=== PATIENT | male | born 1955 | race African-American/Black ===

== ENCOUNTER 2020-11-11 23:46 | Inpatient (IN) | payer MEDICARE, MEDICAID ==
[~2020-11-11] VITALS: Ht 180.3 cm; Wt 61.7 kg
[2020-11-12] VITALS (22 sets, daily range): BP systolic 113–137; BP diastolic 48–107
[2020-11-12] MEDS ORDERED: ONDANSETRON HCL 4MG/2ML INJ IV STA (00:21)
[2020-11-12 00:47] LABS: CHLORIDE 106 mEq/L (98-107)
[2020-11-12 00:51] LABS: INR 1.1; PROTHROMBIN TIME 11.4 sec (9.6-11.0)
[2020-11-12 01:06] LABS: BASOPHILS % 0.4 % (0.0-2.0); EOSINOPHILS % 0.5 % (0.0-5.0); LYMPHOCYTES % 23.8 % (20.0-50.0); MEAN CORPUSCULAR HEMOGLOBIN 19.4 pg (28.0-32.0); MEAN CORPUSCULAR VOLUME 68.5 fL (80.0-94.0); MEAN PLATELET VOLUME 6.8 fl (7.4-10.4); MONOCYTES % 7.7 % (2.0-8.0); NEUTROPHILS % 67.6 % (40.0-76.0); PLATELET 536 x1000/uL (130-400); RED BLOOD CELL COUNT 1.95 mill/uL (4.7-6.1); RED CELL DISTRIBUTION WIDTH 20.7 % (11.6-14.6)
[2020-11-12 01:11] LABS: HEMOGLOBIN. 3.8 g/dL (14.0-18.0)
[2020-11-12 01:12] LABS: HEMATOCRIT. 13.3 % (42.0-52.0)
[2020-11-12] MEDS ORDERED: MORPHINE SULFATE 2 MG/ML CPJ (NOT FOR IM USE) IV ONE (01:30)
[2020-11-12] MEDS ORDERED: IOHEXOL-300 100 ML BOTTLE ONE (02:50)
[2020-11-12] MEDS ORDERED: CEFTRIAXONE 1 G PREMIX 50 ML IV ONE (03:30)
[2020-11-12] MEDS ORDERED: PANTOPRAZOLE SODIUM 40 MG/VIAL IV ONE (03:30)
[2020-11-12] MEDS ORDERED: CLONIDINE 0.1MG TABLET PO PRN (06:45)
[2020-11-12] MEDS ORDERED: ACETAMINOPHEN 325MG TABLET PO PRN ×2 (06:45)
[2020-11-12] MEDS ORDERED: DOCUSATE SODIUM 100MG CAPSULE PO PRN (06:45)
[2020-11-12] MEDS ORDERED: LORAZEPAM 0.5MG TABLET PO PRN (06:45)
[2020-11-12] MEDS ORDERED: IPRATROPIUM/ALBUTEROL 0.5-3(2.5)MG/3ML NEB HHN PRN (06:45)
[2020-11-12] MEDS ORDERED: ONDANSETRON HCL 4MG/2ML INJ IV PRN (06:45)
[2020-11-12] MEDS ORDERED: HYDROCODONE/ACETAMINOPHEN 5/325MG TABLET PO PRN (06:45)
[2020-11-12 07:58] LABS: PLATELET ESTIMATE INCREASED
[2020-11-12] MEDS: SODIUM CHLORIDE 0.9% 1,000 ML IV SCH ×2 (10:24→21:23)
[2020-11-12 12:47] LABS: HEMATOCRIT 25.6 % (42.0-52.0); HEMOGLOBIN 8.2 g/dL (14.0-18.0)
[2020-11-12 13:30] LABS: CARCINO EMBRYONIC ANTIGEN 1.4 ng/ml
[2020-11-12 13:32] LABS: FERRITIN < 5 ng/mL (22-322)
[2020-11-12 14:05] LABS: FOLIC ACID (FOLATE) SERUM >20 ng/mL ng/mL (>5.38)
[2020-11-12 14:16] LABS: VITAMIN B12 SERUM 403 pg/mL (211-911)
[2020-11-12 14:23] LABS: TOTAL IRON BINDING CAPACITY 370 ug/dL (250-450)
[2020-11-12] MEDS: NICOTINE 7MG PATCH TD SCH (14:40)
[2020-11-12 18:56] LABS: CLARITY URINE CLEAR (CLEAR); COLOR URINE YELLOW (YELLOW); KETONES URINE NEGATIVE (NEGATIVE); LEUKOCYTE ESTERASE URINE NEGATIVE (NEGATIVE); NITRITE URINE NEGATIVE (NEGATIVE); OCCULT BLOOD URINE NEGATIVE (NEGATIVE); PH URINE 7.5 (4.5-8.0); PROTEIN URINE NEGATIVE (NEGATIVE); SPECIFIC GRAVITY URINE 1.015 (1.005-1.030); UROBILINOGEN URINE 0.2 E.U./dL (0.2-1.0)
[2020-11-13] VITALS (18 sets, daily range): BP systolic 103–148; BP diastolic 45–76
[2020-11-13 04:57] LABS: BASOPHILS % 0.2 % (0.0-2.0); EOSINOPHILS % 0.3 % (0.0-5.0); HEMATOCRIT. 26.8 % (42.0-52.0); HEMOGLOBIN. 8.6 g/dL (14.0-18.0); LYMPHOCYTES % 12.4 % (20.0-50.0); MEAN CORPUSCULAR HEMOGLOBIN 25.7 pg (28.0-32.0); MEAN CORPUSCULAR VOLUME 80.2 fL (80.0-94.0); MEAN PLATELET VOLUME 7.4 fl (7.4-10.4); MONOCYTES % 8.1 % (2.0-8.0); PLATELET 393 x1000/uL (130-400); RED BLOOD CELL COUNT 3.33 mill/uL (4.7-6.1)
[2020-11-13 05:05] LABS: CHLORIDE 106 mEq/L (98-107)
[2020-11-13] MEDS: MORPHINE SULFATE 2 MG/ML CPJ (NOT FOR IM USE) IV PRN (05:57)
[2020-11-13] MEDS: SODIUM CHLORIDE 0.9% 1,000 ML IV SCH ×2 (08:54→19:30)
[2020-11-13] MEDS: NICOTINE 7MG PATCH TD SCH (08:54)
[2020-11-13] MEDS: IRON SUCROSE COMPLEX 100 MG/5 ML ML IV SCH (10:51)
[2020-11-13] MEDS ORDERED: BISACODYL 5MG TABLET PO NR ×2 (18:00→21:00)
[2020-11-13] MEDS ORDERED: METOCLOPRAMIDE HCL 10MG/2ML VIAL IV NR ×2 (18:00→21:00)
[2020-11-13] MEDS ORDERED: SORBITOL 70% SOLN 30ML PO NR ×2 (18:30→21:30)
[2020-11-14] VITALS (9 sets, daily range): BP systolic 90–117; BP diastolic 57–78
[2020-11-14] MEDS ORDERED: SORBITOL 70% SOLN 30ML PO NR ×3 (00:30→18:00)
[2020-11-14] MEDS: SODIUM CHLORIDE 0.9% 1,000 ML IV SCH ×2 (00:45→20:07)
[2020-11-14] MEDS ORDERED: BISACODYL 5MG TABLET PO NR ×2 (03:00)
[2020-11-14] MEDS ORDERED: METOCLOPRAMIDE HCL 10MG/2ML VIAL IV NR ×2 (03:00)
[2020-11-14 06:43] LABS: CHLORIDE 113 mEq/L (98-107)
[2020-11-14 06:44] LABS: BASOPHILS % 0.4 % (0.0-2.0); EOSINOPHILS % 0.3 % (0.0-5.0); HEMATOCRIT. 31.5 % (42.0-52.0); HEMOGLOBIN. 10.4 g/dL (14.0-18.0); LYMPHOCYTES % 17.4 % (20.0-50.0); MEAN CORPUSCULAR HEMOGLOBIN 26.5 pg (28.0-32.0); MEAN CORPUSCULAR VOLUME 80.5 fL (80.0-94.0); MEAN PLATELET VOLUME 7.7 fl (7.4-10.4); MONOCYTES % 10.4 % (2.0-8.0); NEUTROPHILS % 71.5 % (40.0-76.0); PLATELET 449 x1000/uL (130-400); RED BLOOD CELL COUNT 3.91 mill/uL (4.7-6.1); RED CELL DISTRIBUTION WIDTH 23.7 % (11.6-14.6)
[2020-11-14 06:59] LABS: INR 1.1; PROTHROMBIN TIME 11.7 sec (9.6-11.0)
[2020-11-14] MEDS: IRON SUCROSE COMPLEX 100 MG/5 ML ML IV SCH (08:39)
[2020-11-14] MEDS: NICOTINE 7MG PATCH TD SCH (08:40)
[2020-11-14] MEDS ORDERED: POTASSIUM CHLORIDE 20MEQ TABLET SR PO NR (17:00)
[2020-11-15] VITALS (7 sets, daily range): BP systolic 86–118; BP diastolic 47–75
[2020-11-15] MEDS: MORPHINE SULFATE 2 MG/ML CPJ (NOT FOR IM USE) IV PRN (00:04)
[2020-11-15 06:05] LABS: INR 1.1; PROTHROMBIN TIME 11.7 sec (9.6-11.0)
[2020-11-15 06:09] LABS: BASOPHILS % 0.7 % (0.0-2.0); EOSINOPHILS % 0.8 % (0.0-5.0); HEMATOCRIT. 29.5 % (42.0-52.0); HEMOGLOBIN. 9.4 g/dL (14.0-18.0); MEAN CORPUSCULAR HEMOGLOBIN 25.9 pg (28.0-32.0); MEAN CORPUSCULAR VOLUME 81.1 fL (80.0-94.0); MEAN PLATELET VOLUME 7.9 fl (7.4-10.4); MONOCYTES % 8.9 % (2.0-8.0); NEUTROPHILS % 63.6 % (40.0-76.0); PLATELET 435 x1000/uL (130-400); RED BLOOD CELL COUNT 3.64 mill/uL (4.7-6.1)
[2020-11-15] MEDS ORDERED: DEXT 5%/0.45% NACL 500ML 500 ML IV ONE (08:45)
[2020-11-15] MEDS ORDERED: POTASSIUM CHLORIDE 20MEQ TABLET SR PO NR (08:45)
[2020-11-15 08:55] LABS: CHLORIDE 112 mEq/L (98-107)
[2020-11-15] MEDS: IRON SUCROSE COMPLEX 100 MG/5 ML ML IV SCH (08:58)
[2020-11-15] MEDS: NICOTINE 7MG PATCH TD SCH (08:58)
[2020-11-15] MEDS ORDERED: DEXT 5%/0.45% NACL 1000ML 1,000 ML IV SCH (09:32)
[2020-11-15] MEDS ORDERED: SODIUM CHLORIDE 0.9% 1,000 ML IV SCH (09:33)
[2020-11-15] MEDS ORDERED: MIDAZOLAM HCL 5 MG/5 ML VIAL IV PRN (14:25)
[2020-11-15] MEDS ORDERED: DIAZEPAM 5 MG/ML 2ML CPJ IV PRN (14:28)
[2020-11-15] MEDS ORDERED: MIDAZOLAM HCL 5 MG/5 ML VIAL ONE (14:30)
[2020-11-15] MEDS ORDERED: SODIUM CHLORIDE 0.9% 10ML VIAL ONE (14:30)
[2020-11-15] MEDS ORDERED: FENTANYL CITRATE/PF 50MCG/ML 2ML VIAL ONE (14:30)
[2020-11-15] MEDS ORDERED: DIAZEPAM 5 MG/ML 2ML CPJ ONE (14:35)
[2020-11-15] MEDS: SODIUM CHLORIDE 0.9% 1,000 ML IV SCH (14:45)
[2020-11-16] VITALS (10 sets, daily range): BP systolic 108–144; BP diastolic 57–68
[2020-11-16] MEDS ORDERED: DEXT 5%/0.45% NACL 1000ML 1,000 ML IV SCH (02:00)
[2020-11-16] MEDS: MORPHINE SULFATE 2 MG/ML CPJ (NOT FOR IM USE) IV PRN (02:17)
[2020-11-16 04:09] LABS: CHLORIDE 111 mEq/L (98-107)
[2020-11-16 04:11] LABS: BASOPHILS % 0.5 % (0.0-2.0); EOSINOPHILS % 1.5 % (0.0-5.0); HEMATOCRIT. 26.9 % (42.0-52.0); HEMOGLOBIN. 8.3 g/dL (14.0-18.0); LYMPHOCYTES % 17.5 % (20.0-50.0); MEAN CORPUSCULAR HEMOGLOBIN 25.5 pg (28.0-32.0); MEAN CORPUSCULAR VOLUME 82.3 fL (80.0-94.0); MEAN PLATELET VOLUME 7.6 fl (7.4-10.4); MONOCYTES % 7.4 % (2.0-8.0); NEUTROPHILS % 73.1 % (40.0-76.0); PLATELET 402 x1000/uL (130-400); RED BLOOD CELL COUNT 3.27 mill/uL (4.7-6.1)
[2020-11-16] MEDS ORDERED: CEFOXITIN SODIUM 2 G in DEXT 5% WATER 100 ML IV SCH (06:00)
[2020-11-16] MEDS ORDERED: SKIN ADHESIVE 0.7 GM EA TOP ONE (06:18)
[2020-11-16] MEDS ORDERED: BUPIVACAINE HCL 0.5% (5MG/ML) 50ML ONE (06:18)
[2020-11-16] MEDS ORDERED: CEFAZOLIN 1000MG PREMIX 50 ML IV NR (06:30)
[2020-11-16] MEDS ORDERED: FENTANYL CITRATE/PF 50MCG/ML 2ML VIAL ONE ×2 (07:01→07:03)
[2020-11-16] MEDS ORDERED: NEOSTIGMINE METHYLSULFATE 1MG/ML 10 ML VIAL ONE (07:03)
[2020-11-16] MEDS ORDERED: MIDAZOLAM HCL 2 MG/2 ML VIAL ONE (07:03)
[2020-11-16] MEDS ORDERED: PROPOFOL 200MG/20ML VIAL IV ONE (07:03)
[2020-11-16] MEDS ORDERED: ROCURONIUM BROMIDE 10MG/ML VIAL 5ML IV ONE (07:03)
[2020-11-16] MEDS ORDERED: GLYCOPYRROLATE 0.2 MG/ML 2ML VIAL ONE ×2 (07:04→08:36)
[2020-11-16] MEDS ORDERED: ONDANSETRON HCL 4MG/2ML INJ IV PRN ×2 (07:15→07:45)
[2020-11-16] MEDS ORDERED: MORPHINE SULFATE 4 MG/ML CPJ (NOT FOR IM USE) IV PRN (07:15)
[2020-11-16] MEDS ORDERED: MORPHINE SULFATE 2 MG/ML CPJ (NOT FOR IM USE) IV PRN (07:15)
[2020-11-16] MEDS ORDERED: ONDANSETRON HCL 4MG/2ML INJ ONE (07:31)
[2020-11-16] MEDS ORDERED: DEXAMETHASONE 4MG/ML 1ML VIAL ONE (07:31)
[2020-11-16] MEDS ORDERED: HYDROMORPHONE HCL/PF 2MG/ML CPJ IV PRN (07:45)
[2020-11-16] MEDS ORDERED: LABETALOL 5MG/ML SYR 20 MG/4 ML SYRINGE IV PRN (07:45)
[2020-11-16] MEDS ORDERED: MEPERIDINE HCL/PF 25MG/ML CPJ IV PRN (07:45)
[2020-11-16] MEDS ORDERED: SODIUM CHLORIDE 0.9% 10ML VIAL ONE (08:24)
[2020-11-16] MEDS ORDERED: LIDOCAINE HCL 1% 20ML VIAL (Pyxis) INJ ONE (08:24)
[2020-11-16] MEDS ORDERED: EPHEDRINE SULFATE 50MG/ML VIAL ONE (08:24)
[2020-11-16] MEDS ORDERED: LABETALOL HCL 5MG/ML VIAL 20ML IV ONE (08:24)
[2020-11-16] MEDS ORDERED: BUPIVACAINE HCL 0.5% 125 ML in ON-Q PM012 DRUG DELIV DEVICE 1 EA IR SCH (08:30)
[2020-11-16] MEDS: NICOTINE 7MG PATCH TD SCH (09:00)
[2020-11-16] MEDS ORDERED: NALOXONE INJ IV PRN (10:30)
[2020-11-16] MEDS ORDERED: DIPHENHYDRAMINE INJ IV PRN (10:30)
[2020-11-16] MEDS ORDERED: ONDANSETRON INJ IV PRN (10:30)
[2020-11-16] MEDS: HYDROMORPHONE PCA 10MG/50ML IV PRN (11:40)
[2020-11-16] MEDS ORDERED: IRON SUCROSE COMPLEX 100 MG/5 ML ML IV SCH (12:00)
[2020-11-16] MEDS: METRONIDAZOLE 500 MG PREMIX 100 ML IV SCH ×2 (13:04→22:05)
[2020-11-16] MEDS: FAMOTIDINE 20MG/2ML VIAL IV SCH ×2 (13:04→22:04)
[2020-11-16] MEDS: DEXT 5%/0.45% NACL KCL 20MEQ/L 1,000 ML IV SCH ×2 (13:04→22:04)
[2020-11-16] MEDS: CEFAZOLIN 1000MG PREMIX 50 ML IV SCH ×2 (14:42→22:05)
[2020-11-16 18:24] LABS: HEMATOCRIT. 27.5 % (42.0-52.0); HEMOGLOBIN. 8.7 g/dL (14.0-18.0); MEAN CORPUSCULAR VOLUME 82.4 fL (80.0-94.0); MEAN PLATELET VOLUME 7.6 fl (7.4-10.4); PLATELET 392 x1000/uL (130-400); RED BLOOD CELL COUNT 3.34 mill/uL (4.7-6.1); RED CELL DISTRIBUTION WIDTH 23.9 % (11.6-14.6)
[2020-11-16 18:33] LABS: CHLORIDE 104 mEq/L (98-107)
[2020-11-16 18:59] LABS: PLATELET ESTIMATE NORMAL
[2020-11-17] VITALS (11 sets, daily range): BP systolic 111–143; BP diastolic 51–98
[2020-11-17] MEDS: CEFAZOLIN 1000MG PREMIX 50 ML IV SCH (05:06)
[2020-11-17] MEDS: METRONIDAZOLE 500 MG PREMIX 100 ML IV SCH (05:06)
[2020-11-17 06:54] LABS: CHLORIDE 104 mEq/L (98-107)
[2020-11-17 07:02] LABS: BASOPHILS % 0.1 % (0.0-2.0); EOSINOPHILS % 0.1 % (0.0-5.0); HEMOGLOBIN. 9.3 g/dL (14.0-18.0); LYMPHOCYTES % 9.2 % (20.0-50.0); MEAN CORPUSCULAR HEMOGLOBIN 25.7 pg (28.0-32.0); MEAN CORPUSCULAR VOLUME 82.9 fL (80.0-94.0); MEAN PLATELET VOLUME 7.3 fl (7.4-10.4); MONOCYTES % 6.8 % (2.0-8.0); NEUTROPHILS % 83.8 % (40.0-76.0); PLATELET 383 x1000/uL (130-400); RED BLOOD CELL COUNT 3.61 mill/uL (4.7-6.1)
[2020-11-17] MEDS: FAMOTIDINE 20MG/2ML VIAL IV SCH ×2 (08:22→20:24)
[2020-11-17] MEDS: DEXT 5%/0.45% NACL KCL 20MEQ/L 1,000 ML IV SCH (08:23)
[2020-11-17] MEDS: NICOTINE 7MG PATCH TD SCH (09:15)
[2020-11-17] MEDS ORDERED: MORPHINE SULFATE 4 MG/ML CPJ (NOT FOR IM USE) IV PRN (10:30)
[2020-11-18] VITALS: BP 155/74
[2020-11-18] MEDS: DEXT 5%/0.45% NACL KCL 20MEQ/L 1,000 ML IV SCH ×3 (01:53→13:39)
[2020-11-18 04:00] VITALS: BP 130/71
[2020-11-18 07:01] LABS: BASOPHILS % 0.1 % (0.0-2.0); EOSINOPHILS % 0.1 % (0.0-5.0); HEMATOCRIT. 28.8 % (42.0-52.0); HEMOGLOBIN. 9.3 g/dL (14.0-18.0); MEAN CORPUSCULAR HEMOGLOBIN 26.3 pg (28.0-32.0); MEAN CORPUSCULAR VOLUME 81.6 fL (80.0-94.0); MEAN PLATELET VOLUME 7.6 fl (7.4-10.4); MONOCYTES % 6.5 % (2.0-8.0); NEUTROPHILS % 81.3 % (40.0-76.0); PLATELET 423 x1000/uL (130-400); RED BLOOD CELL COUNT 3.54 mill/uL (4.7-6.1); RED CELL DISTRIBUTION WIDTH 25.2 % (11.6-14.6)
[2020-11-18 07:30] LABS: CHLORIDE 101 mEq/L (98-107)
[2020-11-18 08:00] VITALS: BP 136/76
[2020-11-18] MEDS: FAMOTIDINE 20MG/2ML VIAL IV SCH ×2 (10:26→20:47)
[2020-11-18] MEDS: NICOTINE 7MG PATCH TD SCH (10:27)
[2020-11-18 12:00] VITALS: BP 120/70
[2020-11-18 16:00] VITALS: BP_SYST 106; BP_SYST 138; BP_DIAS 65; BP_DIAS 68
[2020-11-18 20:00] VITALS: BP 128/72
[2020-11-19] VITALS: BP 111/77
[2020-11-19] MEDS: DEXT 5%/0.45% NACL KCL 20MEQ/L 1,000 ML IV SCH ×3 (00:57→21:21)
[2020-11-19 04:00] VITALS: BP 117/67
[2020-11-19 08:00] VITALS: BP 105/56
[2020-11-19 10:08] LABS: BASOPHILS % 0.2 % (0.0-2.0); EOSINOPHILS % 0.3 % (0.0-5.0); HEMATOCRIT. 27.3 % (42.0-52.0); HEMOGLOBIN. 9.1 g/dL (14.0-18.0); MEAN CORPUSCULAR HEMOGLOBIN 27.2 pg (28.0-32.0); MEAN CORPUSCULAR VOLUME 81.6 fL (80.0-94.0); MEAN PLATELET VOLUME 7.6 fl (7.4-10.4); MONOCYTES % 7.3 % (2.0-8.0); NEUTROPHILS % 80.2 % (40.0-76.0); PLATELET 390 x1000/uL (130-400); RED BLOOD CELL COUNT 3.34 mill/uL (4.7-6.1); RED CELL DISTRIBUTION WIDTH 25.5 % (11.6-14.6)
[2020-11-19 10:14] LABS: CHLORIDE 101 mEq/L (98-107)
[2020-11-19] MEDS: FAMOTIDINE 20MG/2ML VIAL IV SCH ×2 (10:15→21:21)
[2020-11-19] MEDS: NICOTINE 7MG PATCH TD SCH (10:15)
[2020-11-19 12:00] VITALS: BP 108/70
[2020-11-19 16:00] VITALS: BP 114/76
[2020-11-19] MEDS: HYDROMORPHONE PCA 10MG/50ML IV PRN (17:39)
[2020-11-19 20:00] VITALS: BP 116/69
[2020-11-20] VITALS: BP 126/76
[2020-11-20 04:00] VITALS: BP 109/65
[2020-11-20] MEDS: DEXT 5%/0.45% NACL KCL 20MEQ/L 1,000 ML IV SCH ×2 (05:18→13:15)
[2020-11-20 06:53] LABS: BASOPHILS % 0.4 % (0.0-2.0); EOSINOPHILS % 0.8 % (0.0-5.0); HEMATOCRIT. 28.9 % (42.0-52.0); HEMOGLOBIN. 9.4 g/dL (14.0-18.0); MEAN CORPUSCULAR HEMOGLOBIN 26.2 pg (28.0-32.0); MEAN CORPUSCULAR VOLUME 80.6 fL (80.0-94.0); MEAN PLATELET VOLUME 7.6 fl (7.4-10.4); MONOCYTES % 9.5 % (2.0-8.0); NEUTROPHILS % 73.3 % (40.0-76.0); PLATELET 433 x1000/uL (130-400); RED BLOOD CELL COUNT 3.59 mill/uL (4.7-6.1); RED CELL DISTRIBUTION WIDTH 25.9 % (11.6-14.6)
[2020-11-20 07:50] LABS: CHLORIDE 100 mEq/L (98-107)
[2020-11-20 08:00] VITALS: BP 90/57
[2020-11-20] MEDS: NICOTINE 7MG PATCH TD SCH (09:44)
[2020-11-20] MEDS: FAMOTIDINE 20MG/2ML VIAL IV SCH ×2 (09:44→20:10)
[2020-11-20 12:00] VITALS: BP 99/66
[2020-11-20] MEDS ORDERED: HYDROCODONE/ACETAMINOPHEN 5/325MG TABLET PO PRN (13:30)
[2020-11-20 16:00] VITALS: BP 119/77
[2020-11-20 20:00] VITALS: BP 106/63
[2020-11-21] VITALS: BP 112/80
[2020-11-21 04:00] VITALS: BP 122/80
[2020-11-21] MEDS: DEXT 5%/0.45% NACL KCL 20MEQ/L 1,000 ML IV SCH (05:16)
[2020-11-21 08:00] VITALS: BP 124/79
[2020-11-21] MEDS: FAMOTIDINE 20MG/2ML VIAL IV SCH (08:42)
[2020-11-21] MEDS: NICOTINE 7MG PATCH TD SCH (08:44)
[2020-11-21] MEDS ORDERED: T3 PO (10:41)
[2020-11-21] MEDS ORDERED: ACET650T37 MT (10:41)
[2020-11-21 12:00] VITALS: BP 124/74
[2020-11-21 15:06] VITALS: BP 131/59
[2020-11-21 15:37] LABS: BASOPHILS % 0.3 % (0.0-2.0); EOSINOPHILS % 2.1 % (0.0-5.0); HEMATOCRIT. 28.9 % (42.0-52.0); HEMOGLOBIN. 9.7 g/dL (14.0-18.0); MEAN CORPUSCULAR HEMOGLOBIN 26.9 pg (28.0-32.0); MEAN CORPUSCULAR VOLUME 79.9 fL (80.0-94.0); MEAN PLATELET VOLUME 7.3 fl (7.4-10.4); MONOCYTES % 7.4 % (2.0-8.0); NEUTROPHILS % 71.2 % (40.0-76.0); PLATELET 508 x1000/uL (130-400); RED BLOOD CELL COUNT 3.62 mill/uL (4.7-6.1); RED CELL DISTRIBUTION WIDTH 26.3 % (11.6-14.6)
[2020-11-21 15:59] LABS: CHLORIDE 103 mEq/L (98-107)
== END 2020-11-21 17:30 | disposition home or self-care (01) | DRG 231 ==
LOC: ER 23:46 → MICUSO 11-12 03:19 → ENRESERV 11-12 03:45 → CANRESERV 11-12 03:45 → EDBEDREQSVC 11-12 05:41 → EDBEDREQTM 11-12 05:43 → ENRESERV 11-12 07:06 → 5EST 11-13 13:08 → 8WST 11-17 15:15
PROVIDERS: ADMIT Internal Medicine; ATTEND Internal Medicine
PROC: 30233N1 Transfusion of Nonautologous Red Blood Cells into Peripheral Vein, Percutaneous Approach (ICD-10-PCS; 2020-11-12)
PROC: 0DBK8ZX Excision of Ascending Colon, Via Natural or Artificial Opening Endoscopic, Diagnostic (ICD-10-PCS; 2020-11-15)
PROC: 0DBM8ZZ Excision of Descending Colon, Via Natural or Artificial Opening Endoscopic (ICD-10-PCS; 2020-11-15)
PROC: 0DDM8ZX Extraction of Descending Colon, Via Natural or Artificial Opening Endoscopic, Diagnostic (ICD-10-PCS; 2020-11-15)
PROC: 0DBF0ZZ Excision of Right Large Intestine, Open Approach (ICD-10-PCS; principal; 2020-11-16)
DX: C18.2 Malignant neoplasm of ascending colon (principal); R64 Cachexia; I48.91 Unspecified atrial fibrillation; J44.9 Chronic obstructive pulmonary disease, unspecified; E88.09 Other disorders of plasma-protein metabolism, not elsewhere classified; K92.2 Gastrointestinal hemorrhage, unspecified; Z20.822 Contact with and (suspected) exposure to COVID-19; D50.9 Iron deficiency anemia, unspecified; F17.210 Nicotine dependence, cigarettes, uncomplicated; I34.1 Nonrheumatic mitral (valve) prolapse; R79.89 Other specified abnormal findings of blood chemistry; I10 Essential (primary) hypertension; J45.20 Mild intermittent asthma, uncomplicated; R59.9 Enlarged lymph nodes, unspecified; K66.0 Peritoneal adhesions (postprocedural) (postinfection); Z68.1 Body mass index [BMI] 19.9 or less, adult; Z87.11 Personal history of peptic ulcer disease; M45.9 Ankylosing spondylitis of unspecified sites in spine
CPT/HCPCS: 36415; 71045; 74177; 80048; 80053; 81003; 82270; 82378; 82607; 82728; 82746; 83540; 83550; 85014; 85018; 85025; 85044; 85651; 86301; 86850; 86900; 86920; 87426; 88305; 88307; 93005; 93306; 97116; 97162; 99152; 99153; 99285; A6261; C9113; J0690; J0696; J1100; J1170; J2175; J2250; J2270; J2405; J2704; J2710; J2765; J3010; J3490; J7040; L0172; P9016; Q9967; G0500

== ENCOUNTER → 2021-12-14 | Outpatient (CLI) | payer MEDICARE, MEDICAID ==
[~2021-12-14] MED LIST: ACET650T37 MT; BARIUM SULFATE 450ML ORAL SUSP ONE; IOHEXOL-300 100 ML BOTTLE ONE; T3 PO
== END | disposition home or self-care (01) ==
LOC: CT 10:46
PROVIDERS: ATTEND Internal Medicine Hematology & Oncology
DX: C18.2 Malignant neoplasm of ascending colon (principal); J44.9 Chronic obstructive pulmonary disease, unspecified
CPT/HCPCS: 71260; 74177; Q9967

== ENCOUNTER 2022-07-31 20:40 | Emergency (ER) | payer MEDICARE, MEDICAID ==
[~2022-07-31] VITALS: Ht 180.3 cm; Wt 62.0 kg
[~2022-07-31 20:40] MED LIST changes: +ACET-3163 MT; -ACET650T37 MT; -BARIUM SULFATE 450ML ORAL SUSP ONE; -IOHEXOL-300 100 ML BOTTLE ONE
[2022-07-31] MEDS ORDERED: ONDANSETRON HCL 4MG/2ML INJ IV STA (20:48)
[2022-07-31] MEDS ORDERED: MORPHINE SULFATE 4 MG/ML CPJ (NOT FOR IM USE) IV STA (20:48)
[2022-07-31] MEDS ORDERED: SODIUM CHLORIDE 0.9% 1,000 ML IV ONE (21:00)
[2022-07-31 22:41] LABS: BASOPHILS % 0.2 % (0.0-2.0); EOSINOPHILS % 0.9 % (0.0-5.0); HEMATOCRIT. 30.3 % (42.0-52.0); HEMOGLOBIN. 9.8 g/dL (14.0-18.0); LYMPHOCYTES % 27.4 % (20.0-50.0); MEAN CORPUSCULAR HEMOGLOBIN 28.5 pg (28.0-32.0); MEAN CORPUSCULAR VOLUME 88.7 fL (80.0-94.0); MEAN PLATELET VOLUME 7.3 fl (7.4-10.4); MONOCYTES % 9.1 % (2.0-8.0); NEUTROPHILS % 62.4 % (40.0-76.0); PLATELET 498 x1000/uL (130-400); RED BLOOD CELL COUNT 3.42 mill/uL (4.7-6.1); RED CELL DISTRIBUTION WIDTH 16.3 % (11.6-14.6)
[2022-07-31 22:45] LABS: CHLORIDE 106 mEq/L (98-107)
[2022-07-31 22:46] LABS: PROTHROMBIN TIME 10.7 sec (9.6-11.0)
[2022-07-31 22:54] LABS: ETHANOL BLOOD < 10 mg/dL
[2022-08-01] MEDS ORDERED: MORPHINE SULFATE 4 MG/ML CPJ (NOT FOR IM USE) IV NR (05:15)
[2022-08-01] MEDS ORDERED: ONDANSETRON HCL 4MG/2ML INJ IV NR (05:15)
[2022-08-01 05:34] VITALS: BP 128/82
[2022-08-01] MEDS ORDERED: DOCU-138 PO (07:47)
[2022-08-01] MEDS ORDERED: T3 PO (07:47)
[2022-08-01] MEDS ORDERED: SENN-257 MT (07:47)
== END 2022-08-01 08:20 | disposition home or self-care (01) ==
LOC: ER 20:40
DX: C79.9 Secondary malignant neoplasm of unspecified site (principal); J44.1 Chronic obstructive pulmonary disease with (acute) exacerbation; J45.909 Unspecified asthma, uncomplicated
CPT/HCPCS: 36415; 71045; 74177; 80053; 80320; 83605; 83690; 84145; 84484; 85025; 85610; 86850; 86900; 86901; 87040; 93005; 96361; 96374; 99285; J2270; J2405; J7030; G0480

== ENCOUNTER → 2022-12-19 | Outpatient (CLI) | payer MEDICARE, MEDICAID ==
[~2022-12-19] MED LIST changes: +BARIUM SULFATE 450ML ORAL SUSP ONE; +DOCU-138 PO; +IOHEXOL-300 100 ML BOTTLE ONE; +SENN-257 MT
== END | disposition home or self-care (01) ==
LOC: CT 08:42
PROVIDERS: ATTEND Internal Medicine Hematology & Oncology
DX: K63.89 Other specified diseases of intestine (principal); C18.2 Malignant neoplasm of ascending colon; K76.89 Other specified diseases of liver; J44.9 Chronic obstructive pulmonary disease, unspecified
CPT/HCPCS: 71260; 74177; Q9967

== ENCOUNTER 2023-04-10 19:27 | Inpatient (IN) | payer MEDICARE, MEDICAID ==
[~2023-04-10] VITALS: Ht 167.6 cm; Wt 54.0 kg
[~2023-04-10 19:27] MED LIST changes: -BARIUM SULFATE 450ML ORAL SUSP ONE; -IOHEXOL-300 100 ML BOTTLE ONE; +PANT40TA51 MT
[2023-04-10] MEDS ORDERED: CEFTRIAXONE 1GM PREMIX 50 ML IV ONE (19:45)
[2023-04-10] MEDS ORDERED: SODIUM CHLORIDE 0.9% 1,000 ML IV ONE (19:45)
[2023-04-10 21:16] LABS: BASOPHILS % 0.5 % (0.0-2.0); EOSINOPHILS % 0.8 % (0.0-5.0); HEMATOCRIT. 24.8 % (42.0-52.0); LYMPHOCYTES % 14.3 % (20.0-50.0); MEAN CORPUSCULAR HEMOGLOBIN 26.6 pg (28.0-32.0); MEAN CORPUSCULAR HGB CONC 32.2 g/dL (31.0-37.0); MEAN CORPUSCULAR VOLUME 82.7 fL (80.0-94.0); MONOCYTES % 6.3 % (2.0-8.0); NEUTROPHILS % 78.1 % (40.0-76.0); PLATELET 465 x1000/uL (130-400); RED CELL DISTRIBUTION WIDTH 28.7 % (11.6-14.6); WHITE BLOOD COUNT 7.2 x1000/uL (4.5-11.0)
[2023-04-10 21:19] LABS: ADD RBC MORPHOLOGY YES; DIFFERENTIAL COMMENT 1
[2023-04-10 21:22] LABS: CHLORIDE 106 mEq/L (98-107); INDEX HEMOLYSI 1 (1-3); INDEX ICTERIC 1 (1-4); INDEX LIPEMIC 1 (1-3); INR 1.1; POTASSIUM 3.7 mEq/L (3.5-5.1); PROTHROMBIN TIME 11.4 sec (9.6-11.0); SODIUM 135 mEq/L (136-145)
[2023-04-10 21:34] LABS: ALANINE AMINOTRANSFERASE 10 IU/L (13-61); ALBUMIN 2.6 g/dL (3.4-5.0); ASPARTATE AMINOTRANSFERASE 11 IU/L (15-37); BILIRUBIN TOTAL 0.2 mg/dL (0.1-1.0); CALCIUM 8.5 mg/dL (8.5-10.1); CARBON DIOXIDE 23 mEq/L (21-32); CREATININE 0.6 mg/dL (0.6-1.3); ETHANOL BLOOD 13 mg/dL (<10); GLUCOSE 96 mg/dL (70-105); PROTEIN TOTAL 6.6 g/dL (6.0-8.3); TROPONIN I HIGH SENSITIVITY 6 ng/L (<78); UREA NITROGEN BLOOD 8 mg/dL (7-21)
[2023-04-10 21:49] LABS: LACTIC ACID 2.8 mmol/L (0.4-2.0)
[2023-04-10 22:00] LABS: ANISOCYTOSIS 3+; PLATELET ESTIMATE INCREASED
[2023-04-10 22:01] LABS: HYPOCHROMASIA 1+; OVALOCYTES 1+
[2023-04-10] MEDS ORDERED: ACETAMINOPHEN 325MG TABLET PO PRN ×2 (22:15)
[2023-04-10] MEDS ORDERED: CLONIDINE 0.1MG TABLET PO PRN (22:15)
[2023-04-10] MEDS ORDERED: GUAIFENESIN 200MG/10ML SUGAR FREE UDC PO PRN (22:15)
[2023-04-10] MEDS ORDERED: ONDANSETRON HCL 4MG/2ML INJ IV PRN (22:15)
[2023-04-10] MEDS ORDERED: IPRATROPIUM/ALBUTEROL 0.5-3(2.5)MG/3ML NEB HHN PRN (22:15)
[2023-04-10] MEDS ORDERED: DOCUSATE SODIUM 100MG CAPSULE PO PRN (22:15)
[2023-04-10] MEDS ORDERED: SODIUM CHLORIDE 0.9% 1000ML BAG (SEPSIS BOLUS) IV ONE (22:30)
[2023-04-10] MEDS ORDERED: CEFTRIAXONE 1GM PREMIX 50 ML IV NR (22:45)
[2023-04-10 22:53] LABS: T4 FREE 0.98 ng/dL (0.76-1.46); THYROID STIMULATING HORMONE 1.4 uIU/mL (0.36-3.74)
[2023-04-10] MEDS: SODIUM CHLORIDE 0.9% 1,000 ML IV SCH (23:01)
[2023-04-11 00:01] LABS: CLARITY URINE CLEAR (CLEAR); COLOR URINE YELLOW (YELLOW); GLUCOSE URINE NEGATIVE (NEGATIVE); KETONES URINE NEGATIVE (NEGATIVE); LEUKOCYTE ESTERASE URINE NEGATIVE (NEGATIVE); NITRITE URINE NEGATIVE (NEGATIVE); OCCULT BLOOD URINE NEGATIVE (NEGATIVE); PROTEIN URINE NEGATIVE (NEGATIVE); SPECIFIC GRAVITY URINE 1.003 (1.005-1.030); UROBILINOGEN URINE 0.2 E.U./dL (0.2-1.0)
[2023-04-11 00:25] LABS: *AMPHETAMINES SCREEN URINE NEGATIVE (NEGATIVE); *BARBITURATES SCREEN URINE NEGATIVE (NEGATIVE); *BENZODIAZEPINES SCREEN URINE NEGATIVE (NEGATIVE); *COCAINE SCREEN URINE PRESUMTIVE POSITIVE (NEGATIVE); CANNABINOID URINE SCREEN NEGATIVE (NEGATIVE); ECSTASY MDMA SCREEN URINE NEGATIVE (NEGATIVE); OPIATES URINE SCREEN NEGATIVE (NEGATIVE); PHENCYCLIDINE URINE SCREEN NEGATIVE (NEGATIVE)
[2023-04-11 00:30] VITALS: BP 125/65; PULSE 79; RESP 18; TEMP 98.1
[2023-04-11 00:52] VITALS: BP 125/65; PULSE 79; RESP 18; TEMP 98.1
[2023-04-11] MEDS ORDERED: HYDR-4009 PO (01:05)
[2023-04-11] MEDS ORDERED: CHOL-36 PO (01:05)
[2023-04-11] MEDS ORDERED: ALBU10.7 INH (01:05)
[2023-04-11] MEDS ORDERED: [UNRECOGNIZED DRUG - CODE] PO (01:05)
[2023-04-11] MEDS: SODIUM CHLORIDE 0.9% 1,000 ML IV SCH (05:17)
[2023-04-11 06:36] LABS: HEMATOCRIT 25.3 % (42.0-52.0); HEMOGLOBIN 7.8 g/dL (14.0-18.0); MEAN CORPUSCULAR HEMOGLOBIN 24.9 pg (28.0-32.0); MEAN CORPUSCULAR HGB CONC 30.7 g/dL (31.0-37.0); MEAN CORPUSCULAR VOLUME 81.2 fL (80.0-94.0); PLATELET 459 x1000/uL (130-400); RED BLOOD CELL COUNT 3.12 mill/uL (4.7-6.1); RED CELL DISTRIBUTION WIDTH 28.6 % (11.6-14.6); WHITE BLOOD COUNT 4.4 x1000/uL (4.5-11.0)
[2023-04-11 06:52] LABS: CHLORIDE 113 mEq/L (98-107); INDEX HEMOLYSI 1 (1-3); INDEX ICTERIC 1 (1-4); INDEX LIPEMIC 1 (1-3); POTASSIUM 3.9 mEq/L (3.5-5.1); SODIUM 139 mEq/L (136-145)
[2023-04-11 06:53] LABS: INDEX HEMOLYSI 1 (1-3)
[2023-04-11 06:59] LABS: ALANINE AMINOTRANSFERASE 8 IU/L (13-61); ALBUMIN 2.3 g/dL (3.4-5.0); ASPARTATE AMINOTRANSFERASE 9 IU/L (15-37); BILIRUBIN TOTAL 0.5 mg/dL (0.1-1.0); CARBON DIOXIDE 24 mEq/L (21-32); CREATININE 0.7 mg/dL (0.6-1.3); GLUCOSE 88 mg/dL (70-105); PHOSPHORUS 3.4 mg/dL (2.5-4.9); PROTEIN TOTAL 6.2 g/dL (6.0-8.3); UREA NITROGEN BLOOD 8 mg/dL (7-21)
[2023-04-11 07:02] LABS: CREATINE KINASE 27 IU/L (39-308); CREATINE KINASE MB FRACTION < 1.0 ng/mL (0.5-3.6); TROPONIN I HIGH SENSITIVITY 8 ng/L (<78)
[2023-04-11 08:00] VITALS: BP 143/92; PULSE 98; RESP 19; TEMP 96.9
[2023-04-11 12:00] VITALS: BP 101/56; PULSE 87; RESP 18; TEMP 97.8
[2023-04-11 16:00] VITALS: BP 112/61; PULSE 86; RESP 18; TEMP 98.1
[2023-04-11 17:41] LABS: INDEX HEMOLYSI 1 (1-3)
[2023-04-11 17:52] LABS: CREATINE KINASE 24 IU/L (39-308); CREATINE KINASE MB FRACTION < 1.0 ng/mL (0.5-3.6); TROPONIN I HIGH SENSITIVITY 6 ng/L (<78)
[2023-04-11 20:00] VITALS: BP 106/54; PULSE 86; RESP 20; TEMP 97.4
[2023-04-11] MEDS ORDERED: FAMOTIDINE 20MG TABLET PO SCH (21:00)
[2023-04-11] MEDS ORDERED: HYDROCODONE/ACETAMINOPHEN 10/325MG TABLET PO PRN (23:30)
[2023-04-11] MEDS ORDERED: NALOXONE HCL 0.4MG/ML VIAL IV PRN (23:45)
[2023-04-12] VITALS: BP_SYST 102; BP_SYST 84; BP_DIAS 53; PULSE 84; RESP 20; TEMP 97.4
[2023-04-12 04:00] VITALS: BP 115/71; PULSE 79; RESP 18; TEMP 98
[2023-04-12] MEDS: SODIUM CHLORIDE 0.9% 1,000 ML IV SCH (05:15)
[2023-04-12 08:00] VITALS: BP 110/68; PULSE 75; RESP 20; TEMP 97.6
[2023-04-12 11:31] VITALS: BP 104/64; PULSE 75; TEMP 98; O2SAT 99
[2023-04-12 11:52] VITALS: BP 102/64; PULSE 77; RESP 19; TEMP 98
== END 2023-04-12 16:10 | disposition home health service (06) | DRG 204 ==
LOC: ER 19:27 → 8WST 21:26
PROVIDERS: ADMIT Hospitalist; ATTEND Hospitalist
DX: I95.1 Orthostatic hypotension (principal); E43 Unspecified severe protein-calorie malnutrition; E87.20 Acidosis, unspecified; D63.8 Anemia in other chronic diseases classified elsewhere; B35.3 Tinea pedis; K76.89 Other specified diseases of liver; D50.9 Iron deficiency anemia, unspecified; F17.210 Nicotine dependence, cigarettes, uncomplicated; H91.90 Unspecified hearing loss, unspecified ear; J44.9 Chronic obstructive pulmonary disease, unspecified; Z87.11 Personal history of peptic ulcer disease; Z85.038 Personal history of other malignant neoplasm of large intestine; I25.2 Old myocardial infarction; Z90.49 Acquired absence of other specified parts of digestive tract; Z68.1 Body mass index [BMI] 19.9 or less, adult
CPT/HCPCS: 36415; 71045; 80053; 80061; 80305; 80320; 81003; 82550; 82553; 83605; 83735; 84100; 84145; 84439; 84443; 84484; 85025; 85027; 93005; 93306; 93970; 99291; J0696; J7030; G0480

== ENCOUNTER → 2023-06-05 | Outpatient (CLI) | payer MEDICARE, MEDICAID ==
[~2023-06-05] MED LIST changes: +ALBU10.7 INH; +BARIUM SULFATE 450ML ORAL SUSP ONE; +CHOL-36 PO; +HYDR-4009 PO; +IOHEXOL-300 100 ML BOTTLE ONE; +[UNRECOGNIZED DRUG - CODE] PO
== END | disposition home or self-care (01) ==
LOC: CT 11:32
PROVIDERS: ATTEND Internal Medicine Hematology & Oncology
DX: C18.2 Malignant neoplasm of ascending colon (principal); D50.0 Iron deficiency anemia secondary to blood loss (chronic); I70.0 Atherosclerosis of aorta
CPT/HCPCS: 71260; 74177; Q9967; Z7610

== ENCOUNTER → 2023-07-11 | Outpatient (CLI) | payer MEDICARE, MEDICAID ==
[~2023-07-11] MED LIST changes: -BARIUM SULFATE 450ML ORAL SUSP ONE; +FERR30CA PO; -IOHEXOL-300 100 ML BOTTLE ONE
== END | disposition home or self-care (01) ==
LOC: US 10:56
PROVIDERS: ATTEND Internal Medicine Hematology & Oncology
DX: I82.432 Acute embolism and thrombosis of left popliteal vein (principal); R22.40 Localized swelling, mass and lump, unspecified lower limb
CPT/HCPCS: 93970

== ENCOUNTER 2023-08-14 12:28 | Emergency (ER) | payer MEDICARE, MEDICAID ==
[~2023-08-14] VITALS: Ht 167.6 cm; Wt 57.0 kg
[2023-08-14 12:46] VITALS: TEMP 98.6; O2SAT 99
[2023-08-14 13:23] LABS: BASOPHILS % 0.5 % (0.0-2.0); EOSINOPHILS % 2.4 % (0.0-5.0); HEMATOCRIT. 22.8 % (42.0-52.0); HEMOGLOBIN. 7.2 g/dL (14.0-18.0); LYMPHOCYTES % 17.7 % (20.0-50.0); MEAN CORPUSCULAR HEMOGLOBIN 24.9 pg (28.0-32.0); MEAN CORPUSCULAR HGB CONC 31.6 g/dL (31.0-37.0); MEAN CORPUSCULAR VOLUME 78.9 fL (80.0-94.0); MEAN PLATELET VOLUME 6.4 fl (7.4-10.4); MONOCYTES % 4.1 % (2.0-8.0); NEUTROPHILS % 75.3 % (40.0-76.0); PLATELET 485 x1000/uL (130-400); RED BLOOD CELL COUNT 2.89 mill/uL (4.7-6.1); RED CELL DISTRIBUTION WIDTH 23.6 % (11.6-14.6); WHITE BLOOD COUNT 3.5 x1000/uL (4.5-11.0)
[2023-08-14 13:24] LABS: ADD RBC MORPHOLOGY YES; DIFFERENTIAL COMMENT 1
[2023-08-14 13:38] LABS: ALANINE AMINOTRANSFERASE 9 IU/L (10-49); ALBUMIN 2.9 g/dL (3.2-4.8); ASPARTATE AMINOTRANSFERASE 11 IU/L (<34); BILIRUBIN TOTAL 0.2 mg/dL (0.1-1.0); CALCIUM 8.3 mg/dL (8.7-10.4); CARBON DIOXIDE 26 mEq/L (21-32); CHLORIDE 102 mEq/L (98-107); CREATININE 0.5 mg/dL (0.6-1.3); GLUCOSE 111 mg/dL (70-105); POTASSIUM 3.7 mEq/L (3.5-5.1); PROTEIN TOTAL 6.4 g/dL (6.0-8.3); SODIUM 135 mEq/L (136-145); UREA NITROGEN BLOOD 10 mg/dL (9-23)
[2023-08-14] MEDS ORDERED: ONDANSETRON HCL 4MG/2ML INJ IV STA (13:47)
[2023-08-14] MEDS ORDERED: MORPHINE SULFATE 4 MG/ML CPJ (NOT FOR IM USE) IV STA (13:47)
[2023-08-14 13:57] LABS: TROPONIN I HIGH SENSITIVITY < 4 ng/L (3.0-53)
[2023-08-14 14:07] LABS: ANISOCYTOSIS 3+; HYPOCHROMASIA 1+; MICROCYTOSIS 1+; PLATELET ESTIMATE INCREASED
[2023-08-14] MEDS ORDERED: OXYC-105 MT (19:20)
[2023-08-14 19:27] VITALS: BP 122/67; PULSE 81; RESP 17
[2023-08-14] MEDS ORDERED: IOHEXOL-300 100 ML BOTTLE ONE (23:12)
== END 2023-08-14 20:35 | disposition home or self-care (01) ==
LOC: ER 12:28 → CANBEDREQ 08-15 16:43
DX: R19.00 Intra-abdominal and pelvic swelling, mass and lump, unspecified site (principal); J44.9 Chronic obstructive pulmonary disease, unspecified; Z85.9 Personal history of malignant neoplasm, unspecified
CPT/HCPCS: 99285; 74177; 96374; 96375; 80053; 83690; 85025; 84484; 36415; 93005; Q9967; J2405; J2270

== ENCOUNTER 2023-11-15 13:09 | Inpatient (IN) | payer MEDICARE, MEDICAID ==
[~2023-11-15] VITALS: Ht 172.7 cm; Wt 59.0 kg
[~2023-11-15 13:09] MED LIST changes: -ACET-3163 MT; +APIX5TAB PO; +CHLO50TA50 PO; -CHOL-36 PO; -DOCU-138 PO; -FERR30CA PO; -PANT40TA51 MT; -SENN-257 MT; -T3 PO; -[UNRECOGNIZED DRUG - CODE] PO
[2023-11-15] MEDS: ONDANSETRON HCL 4MG/2ML INJ IV STA (13:43)
[2023-11-15] MEDS: MORPHINE SULFATE 4 MG/ML INJ (FOR IV/IM USE) IV STA (13:43)
[2023-11-15 14:09] LABS: HEMATOCRIT. 24.1 % (42.0-52.0); HEMOGLOBIN. 7.6 g/dL (14.0-18.0); MEAN CORPUSCULAR HEMOGLOBIN 25.4 pg (28.0-32.0); MEAN CORPUSCULAR HGB CONC 31.4 g/dL (31.0-37.0); MEAN CORPUSCULAR VOLUME 80.8 fL (80.0-94.0); MEAN PLATELET VOLUME 6.4 fl (7.4-10.4); PLATELET 567 x1000/uL (130-400); RED BLOOD CELL COUNT 2.98 mill/uL (4.7-6.1); RED CELL DISTRIBUTION WIDTH 25.6 % (11.6-14.6); WHITE BLOOD COUNT 15.1 x1000/uL (4.5-11.0)
[2023-11-15 14:17] LABS: DIFFERENTIAL COMMENT 1
[2023-11-15 14:18] LABS: CARBON DIOXIDE 24 mEq/L (21-32); CHLORIDE 98 mEq/L (98-107); POTASSIUM 4.1 mEq/L (3.5-5.1); SODIUM 129 mEq/L (136-145)
[2023-11-15 14:20] LABS: INR 1.1; PARTIAL THROMBOPLASTIN TIME 26.5 sec (23.4-31.0); PROTHROMBIN TIME 12.4 sec (9.6-11.0)
[2023-11-15 14:23] LABS: GLUCOSE 93 mg/dL (70-105)
[2023-11-15 14:24] LABS: UREA NITROGEN BLOOD 10 mg/dL (9-23)
[2023-11-15 14:25] LABS: ALANINE AMINOTRANSFERASE < 7 IU/L (10-49); ASPARTATE AMINOTRANSFERASE 11 IU/L (<34)
[2023-11-15 14:26] LABS: BILIRUBIN TOTAL 0.3 mg/dL (0.1-1.0); PROTEIN TOTAL 4.7 g/dL (6.0-8.3)
[2023-11-15 14:30] LABS: CREATININE 0.5 mg/dL (0.6-1.3)
[2023-11-15 14:31] LABS: TROPONIN I HIGH SENSITIVITY < 4 ng/L (3.0-53)
[2023-11-15 14:51] LABS: ANISOCYTOSIS 4+; OVALOCYTES 1+; PLATELET ESTIMATE INCREASED
[2023-11-15] MEDS: FUROSEMIDE 40MG/4ML VIAL IVP ONE (15:28)
[2023-11-15 17:50] LABS: TROPONIN I HIGH SENSITIVITY < 4 ng/L (3.0-53)
[2023-11-15] MEDS: PIPERACILLIN/TAZO 3.375G/50ML 50 ML IV ONE (19:22)
[2023-11-15] MEDS: VANCOMYCIN 1G PREMIX 200 ML IV ONE (19:22)
[2023-11-15 20:27] LABS: LACTIC ACID 2.2 mmol/L (0.4-2.0)
[2023-11-15] MEDS ORDERED: IPRATROPIUM/ALBUTEROL 0.5-3(2.5)MG/3ML NEB HHN PRN (20:45)
[2023-11-15] MEDS ORDERED: PIPERACILLIN/TAZOBACTAM 3.375 G in DEXTROSE 5% WATER 50 ML IV SCH (20:45)
[2023-11-15] MEDS ORDERED: ACETAMINOPHEN 650MG/20.3ML UDC GT PRN (20:45)
[2023-11-15] MEDS ORDERED: ONDANSETRON HCL 4MG/2ML INJ IV PRN (20:45)
[2023-11-15] MEDS ORDERED: VANCOMYCIN 500MG/100ML IV NR (21:00)
[2023-11-15 22:32] VITALS: BP 104/75; PULSE 108; RESP 19; TEMP 97.5
[2023-11-15] MEDS: PIPERACILLIN/TAZO 3.375G/50ML IV SCH (22:56)
[2023-11-15] MEDS: DEXT 5%/0.45% NACL 1000ML 1,000 ML IV SCH (22:56)
[2023-11-15] MEDS ORDERED: NALOXONE HCL 0.4MG/ML VIAL IV PRN (23:45)
[2023-11-16] VITALS (15 sets, daily range): BP systolic 91–113; BP diastolic 51–68; PULSE 71–100; RESP 13–25; TEMP 97–98.4
[2023-11-16] MEDS: MORPHINE SULFATE 2 MG/ML CPJ (NOT FOR IM USE) IV PRN (00:30)
[2023-11-16] MEDS: ENOXAPARIN 60MG/0.6ML SYR SUBCUT SCH (05:09)
[2023-11-16 05:52] LABS: CHLORIDE 100 mEq/L (98-107); POTASSIUM 3.9 mEq/L (3.5-5.1); SODIUM 132 mEq/L (136-145)
[2023-11-16 05:53] LABS: CALCIUM 7.7 mg/dL (8.7-10.4); CARBON DIOXIDE 24 mEq/L (21-32)
[2023-11-16 05:58] LABS: CREATININE 0.5 mg/dL (0.6-1.3); GLUCOSE 88 mg/dL (70-105); IRON 17 ug/dL (65-175); TRIGLYCERIDE 107 mg/dL (0-150)
[2023-11-16 05:59] LABS: LDL CHOLESTEROL 35 mg/dL (5-100); UREA NITROGEN BLOOD 9 mg/dL (9-23)
[2023-11-16 06:00] LABS: CHOLESTEROL 87 mg/dL (<200); CREATINE KINASE 20 IU/L (46-171); HDL CHOLESTEROL 34 mg/dL (>55)
[2023-11-16 06:03] LABS: T4 FREE 0.88 ng/dL (0.89-1.76); THYROID STIMULATING HORMONE 1.89 uIU/mL (0.55-4.78)
[2023-11-16 06:16] LABS: TOTAL IRON BINDING CAPACITY < 40 ug/dl (250-425)
[2023-11-16 06:35] LABS: BASOPHILS % 0.2 % (0.0-2.0); HEMATOCRIT. 22.7 % (42.0-52.0); LYMPHOCYTES % 9.3 % (20.0-50.0); MEAN CORPUSCULAR HEMOGLOBIN 24.4 pg (28.0-32.0); MEAN CORPUSCULAR HGB CONC 29.5 g/dL (31.0-37.0); MEAN CORPUSCULAR VOLUME 82.8 fL (80.0-94.0); MONOCYTES % 8.7 % (2.0-8.0); NEUTROPHILS % 81.8 % (40.0-76.0); PLATELET 390 x1000/uL (130-400); RED BLOOD CELL COUNT 2.74 mill/uL (4.7-6.1); WHITE BLOOD COUNT 13.8 x1000/uL (4.5-11.0)
[2023-11-16 08:01] LABS: DIFFERENTIAL COMMENT 1
[2023-11-16 08:06] LABS: HEMOGLOBIN. 6.7 g/dL (14.0-18.0)
[2023-11-16] MEDS ORDERED: PANTOPRAZOLE SODIUM 40 MG/VIAL IV SCH (09:00)
[2023-11-16] MEDS: IRON SUCROSE COMPLEX 100 MG/5 ML ML IV NR (09:21)
[2023-11-16] MEDS: PANTOPRAZOLE SODIUM 40 MG/VIAL IV SCH (09:21)
[2023-11-16] MEDS: DEXT 5%/0.9% NACL 1,000 ML IV SCH (09:21)
[2023-11-16 11:00] LABS: INR 1.2; PROTHROMBIN TIME 13.3 sec (9.6-11.0)
[2023-11-16] MEDS ORDERED: LIDOCAINE HCL 1% 10 MG/ML 10ML VIAL ONE (11:34)
[2023-11-16] MEDS: VANCOMYCIN 750MG/150ML IV SCH (13:21)
[2023-11-16] MEDS: MEROPENEM 1G/100ML 100 ML IV SCH (15:51)
[2023-11-16] MEDS ORDERED: METOPROLOL TARTRATE 5MG/5ML VIAL IV PRN (16:15)
[2023-11-17] VITALS (11 sets, daily range): BP systolic 74–106; BP diastolic 40–59; PULSE 64–105; RESP 11–21; TEMP 96.4–98.8
[2023-11-17 07:17] LABS: CARBON DIOXIDE 26 mEq/L (21-32); CHLORIDE 102 mEq/L (98-107); SODIUM 133 mEq/L (136-145)
[2023-11-17 07:18] LABS: CALCIUM 7.4 mg/dL (8.7-10.4)
[2023-11-17 07:23] LABS: CREATININE 0.4 mg/dL (0.6-1.3); GLUCOSE 114 mg/dL (70-105); UREA NITROGEN BLOOD 9 mg/dL (9-23)
[2023-11-17] MEDS: IRON SUCROSE COMPLEX 100 MG/5 ML ML IV SCH (09:03)
[2023-11-17 10:40] LABS: LACTIC ACID 2.1 mmol/L (0.4-2.0)
[2023-11-17] MEDS: LACTATED RINGERS 1,000 ML IV SCH (13:38)
[2023-11-17] MEDS: KCL 20MEQ/100ML PREMIX 100 ML IV SCH (15:03)
[2023-11-17 16:42] LABS: BASOPHILS % 0.3 % (0.0-2.0); HEMATOCRIT. 26.1 % (42.0-52.0); HEMOGLOBIN. 8.1 g/dL (14.0-18.0); LYMPHOCYTES % 9.1 % (20.0-50.0); MEAN CORPUSCULAR HEMOGLOBIN 26.4 pg (28.0-32.0); MONOCYTES % 9.6 % (2.0-8.0); PLATELET 332 x1000/uL (130-400); RED BLOOD CELL COUNT 3.07 mill/uL (4.7-6.1); RED CELL DISTRIBUTION WIDTH 23.4 % (11.6-14.6); WHITE BLOOD COUNT 13.1 x1000/uL (4.5-11.0)
[2023-11-17 16:52] LABS: DIFFERENTIAL COMMENT 1
[2023-11-17] MEDS: ACETAMINOPHEN 325MG TABLET PO PRN (17:56)
[2023-11-18] VITALS (12 sets, daily range): BP systolic 84–106; BP diastolic 52–77; PULSE 66–100; RESP 11–21; TEMP 96.8–98.6
[2023-11-18 06:25] LABS: HEMATOCRIT. 21.4 % (42.0-52.0); HEMOGLOBIN. 7.1 g/dL (14.0-18.0); MEAN CORPUSCULAR HEMOGLOBIN 26.8 pg (28.0-32.0); MEAN CORPUSCULAR HGB CONC 33.2 g/dL (31.0-37.0); MEAN PLATELET VOLUME 6.9 fl (7.4-10.4); PLATELET 319 x1000/uL (130-400); RED BLOOD CELL COUNT 2.65 mill/uL (4.7-6.1); RED CELL DISTRIBUTION WIDTH 23.3 % (11.6-14.6); WHITE BLOOD COUNT 11.7 x1000/uL (4.5-11.0)
[2023-11-18 06:30] LABS: CARBON DIOXIDE 26 mEq/L (21-32); CHLORIDE 104 mEq/L (98-107); POTASSIUM 3.4 mEq/L (3.5-5.1); SODIUM 132 mEq/L (136-145)
[2023-11-18 06:31] LABS: CALCIUM 7.5 mg/dL (8.7-10.4)
[2023-11-18 06:33] LABS: DIFFERENTIAL COMMENT 1
[2023-11-18 06:34] LABS: MEAN CORPUSCULAR VOLUME 80.7 fL (80.0-94.0)
[2023-11-18 06:35] LABS: CREATININE 0.3 mg/dL (0.6-1.3)
[2023-11-18 06:36] LABS: GLUCOSE 82 mg/dL (70-105); UREA NITROGEN BLOOD 6 mg/dL (9-23)
[2023-11-18] MEDS: KCL 20MEQ/100ML PREMIX 100 ML IV NR (11:36)
[2023-11-18 13:18] LABS: ANISOCYTOSIS 3+; PLATELET ESTIMATE NORMAL
[2023-11-18 19:48] LABS: HEMATOCRIT 32.8 % (42.0-52.0); HEMOGLOBIN 10.8 g/dL (14.0-18.0)
[2023-11-18] MEDS: SODIUM CHLORIDE 0.9% 1,000 ML IV SCH (20:55)
[2023-11-18] MEDS: PIPERACILLIN/TAZO 3.375G/50ML 50 ML IV SCH (20:55)
[2023-11-19] VITALS: BP 96/59; PULSE 73; RESP 13; TEMP 97.5
[2023-11-19 04:00] VITALS: BP 100/58; PULSE 73; RESP 11; TEMP 97.1
[2023-11-19 05:56] LABS: HEMATOCRIT. 27.9 % (42.0-52.0); HEMOGLOBIN. 9.2 g/dL (14.0-18.0); MEAN CORPUSCULAR HEMOGLOBIN 26.9 pg (28.0-32.0); MEAN CORPUSCULAR HGB CONC 32.8 g/dL (31.0-37.0); MEAN CORPUSCULAR VOLUME 81.8 fL (80.0-94.0); PLATELET 288 x1000/uL (130-400); RED BLOOD CELL COUNT 3.42 mill/uL (4.7-6.1); RED CELL DISTRIBUTION WIDTH 22.9 % (11.6-14.6)
[2023-11-19 06:08] LABS: CHLORIDE 105 mEq/L (98-107); POTASSIUM 3.4 mEq/L (3.5-5.1); SODIUM 133 mEq/L (136-145)
[2023-11-19 06:09] LABS: CARBON DIOXIDE 26 mEq/L (21-32)
[2023-11-19 06:10] LABS: CALCIUM 7.7 mg/dL (8.7-10.4)
[2023-11-19 06:14] LABS: CREATININE 0.3 mg/dL (0.6-1.3); GLUCOSE 82 mg/dL (70-105)
[2023-11-19 06:15] LABS: UREA NITROGEN BLOOD 6 mg/dL (9-23)
[2023-11-19 06:16] LABS: ALANINE AMINOTRANSFERASE < 7 IU/L (10-49); ALBUMIN 1.4 g/dL (3.2-4.8)
[2023-11-19 06:17] LABS: ASPARTATE AMINOTRANSFERASE 8 IU/L (<34); BILIRUBIN TOTAL 0.6 mg/dL (0.1-1.0); PROTEIN TOTAL 3.7 g/dL (6.0-8.3)
[2023-11-19 06:40] LABS: DIFFERENTIAL COMMENT 1
[2023-11-19 08:00] VITALS: BP 102/61; PULSE 67; RESP 10; TEMP 97.8
[2023-11-19] MEDS ORDERED: ACETAMINOPHEN 325MG TABLET PO PRN (10:30)
[2023-11-19] MEDS: POTASSIUM CHLORIDE 20MEQ/PACKET PO SCH (11:00)
[2023-11-19 12:00] VITALS: BP 94/65; PULSE 106; RESP 20; TEMP 97.5
[2023-11-19] MEDS: HYDROCODONE/ACETAMINOPHEN 10/325MG TABLET PO PRN (13:04)
[2023-11-19 16:00] VITALS: PULSE 72; RESP 12; TEMP 98.1
[2023-11-19 20:00] VITALS: BP 94/68; PULSE 84; RESP 16; TEMP 97.5
[2023-11-19 20:39] LABS: ANISOCYTOSIS 3+; PLATELET ESTIMATE NORMAL
[2023-11-20] VITALS: BP 92/61; PULSE 65; RESP 12; TEMP 97.3
[2023-11-20 04:00] VITALS: BP 92/50; PULSE 67; RESP 8; TEMP 97.4
[2023-11-20 06:00] VITALS: BP 96/61; PULSE 65; RESP 9
[2023-11-20 06:32] LABS: HEMATOCRIT 26.9 % (42.0-52.0); MEAN CORPUSCULAR HEMOGLOBIN 27.6 pg (28.0-32.0); MEAN CORPUSCULAR HGB CONC 33.3 g/dL (31.0-37.0); MEAN CORPUSCULAR VOLUME 82.8 fL (80.0-94.0); PLATELET 272 x1000/uL (130-400); RED BLOOD CELL COUNT 3.25 mill/uL (4.7-6.1); RED CELL DISTRIBUTION WIDTH 22.5 % (11.6-14.6); WHITE BLOOD COUNT 13.6 x1000/uL (4.5-11.0)
[2023-11-20 06:54] LABS: CALCIUM 7.6 mg/dL (8.7-10.4); CHLORIDE 107 mEq/L (98-107); POTASSIUM 3.4 mEq/L (3.5-5.1); SODIUM 135 mEq/L (136-145)
[2023-11-20 06:55] LABS: CARBON DIOXIDE 25 mEq/L (21-32)
[2023-11-20 07:00] LABS: CREATININE 0.3 mg/dL (0.6-1.3); GLUCOSE 77 mg/dL (70-105)
[2023-11-20 07:01] LABS: UREA NITROGEN BLOOD 7 mg/dL (9-23)
[2023-11-20 07:03] LABS: PHOSPHORUS 1.6 mg/dL (2.5-4.9)
[2023-11-20 08:00] VITALS: BP 96/55; PULSE 64; RESP 8; TEMP 97.6
[2023-11-20] MEDS: MAGNESIUM 4 G PREMIX 100 ML IV NR (09:27)
[2023-11-20] MEDS: POTASSIUM PHOSPHATE 30 MMOL in SODIUM CHLORIDE 0.9% 490 ML IV NR (11:16)
[2023-11-20 16:00] VITALS: BP 92/92; PULSE 82; RESP 19; TEMP 96.9
[2023-11-20 20:00] VITALS: BP 105/60; PULSE 92; RESP 19; TEMP 97.8
[2023-11-21] VITALS: BP 103/65; PULSE 87; RESP 19; TEMP 98.7
[2023-11-21 04:00] VITALS: BP 100/70; PULSE 113; RESP 20; TEMP 96.9
[2023-11-21 08:00] VITALS: BP 119/56; PULSE 80; RESP 20; TEMP 97.6
[2023-11-21 09:16] LABS: CALCIUM 7.5 mg/dL (8.7-10.4); CARBON DIOXIDE 24 mEq/L (21-32); CHLORIDE 107 mEq/L (98-107); POTASSIUM 3.9 mEq/L (3.5-5.1); SODIUM 135 mEq/L (136-145)
[2023-11-21 09:21] LABS: CREATININE 0.3 mg/dL (0.6-1.3)
[2023-11-21 09:22] LABS: GLUCOSE 72 mg/dL (70-105); UREA NITROGEN BLOOD 8 mg/dL (9-23)
[2023-11-21 09:24] LABS: PHOSPHORUS 3.2 mg/dL (2.5-4.9)
[2023-11-21 12:00] VITALS: BP 141/64; PULSE 106; RESP 20; TEMP 97
[2023-11-21 16:00] VITALS: BP 120/52; PULSE 94; RESP 20; TEMP 97.8
[2023-11-21 20:00] VITALS: BP 133/64; PULSE 97; RESP 19; TEMP 98.1
[2023-11-22] VITALS: BP 116/66; PULSE 105; RESP 19; TEMP 97.8
[2023-11-22 04:00] VITALS: BP 115/51; PULSE 93; RESP 19; TEMP 97.9
[2023-11-22 08:00] VITALS: BP 154/67; PULSE 94; RESP 18; TEMP 97.6
[2023-11-22 12:00] VITALS: BP 101/60; PULSE 89; RESP 18; TEMP 97
[2023-11-22 16:00] VITALS: BP 112/87; PULSE 125; RESP 18; TEMP 97.9
[2023-11-22 20:00] VITALS: BP 119/72; PULSE 91; RESP 18; TEMP 96.3
[2023-11-23] VITALS: BP 106/61; PULSE 88; RESP 19; TEMP 97.7
[2023-11-23 04:00] VITALS: BP 108/58; PULSE 56; RESP 20; TEMP 97.8
[2023-11-23] MEDS: KETOROLAC 30MG/ML VIAL IV NR (06:44)
[2023-11-23 07:08] LABS: CHLORIDE 110 mEq/L (98-107); POTASSIUM 3.5 mEq/L (3.5-5.1); SODIUM 137 mEq/L (136-145)
[2023-11-23 07:09] LABS: CALCIUM 7.6 mg/dL (8.7-10.4); CARBON DIOXIDE 22 mEq/L (21-32)
[2023-11-23 07:14] LABS: GLUCOSE 62 mg/dL (70-105)
[2023-11-23 07:15] LABS: UREA NITROGEN BLOOD 7 mg/dL (9-23)
[2023-11-23 07:24] LABS: CREATININE 0.4 mg/dL (0.6-1.3)
[2023-11-23 08:24] VITALS: BP 97/50; PULSE 102; RESP 20; TEMP 98.6
[2023-11-23 10:54] LABS: HEMATOCRIT 33.8 % (42.0-52.0); HEMOGLOBIN 10.5 g/dL (14.0-18.0); MEAN CORPUSCULAR HEMOGLOBIN 27.1 pg (28.0-32.0); MEAN CORPUSCULAR VOLUME 87.6 fL (80.0-94.0); PLATELET 320 x1000/uL (130-400); RED BLOOD CELL COUNT 3.86 mill/uL (4.7-6.1); RED CELL DISTRIBUTION WIDTH 23.3 % (11.6-14.6); WHITE BLOOD COUNT 14.5 x1000/uL (4.5-11.0)
[2023-11-23 16:00] VITALS: BP 100/66; PULSE 99; RESP 20; TEMP 98
[2023-11-23] MEDS ORDERED: AMOX1TAB15 MT (17:17)
[2023-11-23] MEDS ORDERED: LEVO750T68 PO (17:17)
[2023-11-23 20:00] VITALS: BP 116/66; PULSE 94; RESP 18; TEMP 96.8
[2023-11-24 04:00] VITALS: BP 108/64; PULSE 82; RESP 18; TEMP 97.2
[2023-11-24 08:00] VITALS: BP 124/70; PULSE 82; RESP 18; TEMP 97.4
[2023-11-24 12:00] VITALS: BP 118/64; PULSE 65; RESP 18; TEMP 97
[2023-11-24 12:49] VITALS: BP 118/64; PULSE 65; TEMP 97.8; O2SAT 98
[2023-11-24 16:00] VITALS: BP 119/68; PULSE 78; RESP 18; TEMP 97.2
[2023-11-24] MEDS: FUROSEMIDE 20MG/2ML VIAL IVP NR (19:13)
[2023-11-24 20:00] VITALS: BP 120/71; PULSE 109; RESP 18; TEMP 97.5
[2023-11-25] VITALS: BP 107/65; PULSE 106; RESP 20; TEMP 97.7
[2023-11-25] MEDS: MORPHINE SULFATE 2 MG/ML CPJ (NOT FOR IM USE) IV PRN (03:46)
[2023-11-25 04:00] VITALS: BP 102/56; PULSE 97; RESP 20; TEMP 97.6
[2023-11-25] MEDS ORDERED: NALOXONE HCL 0.4MG/ML VIAL IV PRN (08:00)
[2023-11-25] MEDS: HYDROCODONE/ACETAMINOPHEN 10/325MG TABLET PO PRN (08:15)
[2023-11-25 12:00] VITALS: BP 99/55; PULSE 83; RESP 18; TEMP 97.6
[2023-11-25 16:00] VITALS: BP 100/52; PULSE 92; RESP 20; TEMP 98.2
[2023-11-25 20:00] VITALS: BP 115/74; PULSE 19; RESP 19; TEMP 96.1
[2023-11-25] MEDS: AMOXICILLIN/POTASSIUM CLAVULANATE 875/125MG TAB PO SCH (21:38)
[2023-11-25] MEDS: DEXTROSE 50% WATER 50ML SYRINGE IV NR (22:05)
[2023-11-26] VITALS: BP 117/67; PULSE 89; RESP 19; TEMP 95.7
[2023-11-26 04:00] VITALS: BP 117/65; PULSE 94; RESP 18; TEMP 96.6
[2023-11-26 08:00] VITALS: BP 97/55; PULSE 91; RESP 18; TEMP 98.2
[2023-11-26] MEDS: LEVOFLOXACIN 250MG TABLET PO SCH (11:58)
[2023-11-26 12:00] VITALS: BP 97/76; PULSE 82; RESP 20; TEMP 96.9
[2023-11-26 16:00] VITALS: BP 113/62; PULSE 104; RESP 18; TEMP 98
[2023-11-26 17:57] LABS: HEMATOCRIT 30.2 % (42.0-52.0); HEMOGLOBIN 9.4 g/dL (14.0-18.0); MEAN CORPUSCULAR HEMOGLOBIN 27.5 pg (28.0-32.0); MEAN CORPUSCULAR HGB CONC 31.2 g/dL (31.0-37.0); MEAN CORPUSCULAR VOLUME 88.2 fL (80.0-94.0); PLATELET 337 x1000/uL (130-400); RED BLOOD CELL COUNT 3.42 mill/uL (4.7-6.1); RED CELL DISTRIBUTION WIDTH 23.6 % (11.6-14.6); WHITE BLOOD COUNT 17.5 x1000/uL (4.5-11.0)
[2023-11-26 18:06] LABS: CHLORIDE 109 mEq/L (98-107); POTASSIUM 3.9 mEq/L (3.5-5.1); SODIUM 135 mEq/L (136-145)
[2023-11-26 18:07] LABS: CALCIUM 8.3 mg/dL (8.7-10.4); CARBON DIOXIDE 20 mEq/L (21-32)
[2023-11-26 18:12] LABS: CREATININE 0.5 mg/dL (0.6-1.3); GLUCOSE 80 mg/dL (70-105)
[2023-11-26 18:13] LABS: UREA NITROGEN BLOOD 9 mg/dL (9-23)
[2023-11-26 18:15] LABS: PHOSPHORUS 2.9 mg/dL (2.5-4.9)
[2023-11-26 20:00] VITALS: BP 133/72; PULSE 82; RESP 17; TEMP 98.2
[2023-11-26] MEDS: DEXTROSE 50% WATER 50ML SYRINGE IV ONE (20:55)
[2023-11-26] MEDS ORDERED: DEXTROSE 50% WATER 50ML SYRINGE IV NR (21:00)
[2023-11-26] MEDS: MAGNESIUM 2 G PREMIX 50 ML IV NR (22:23)
[2023-11-26] MEDS: DEXT 5%/0.9% NACL 1,000 ML IV SCH (22:24)
[2023-11-27] VITALS: BP 113/59; PULSE 60; RESP 18; TEMP 97.3
[2023-11-27 04:00] VITALS: BP 107/68; PULSE 88; RESP 19; TEMP 98
[2023-11-27 08:00] VITALS: BP 113/64; PULSE 84; RESP 20; TEMP 97.7
[2023-11-27 12:00] VITALS: BP 129/65; PULSE 70; RESP 19; TEMP 98
[2023-11-27 16:00] VITALS: BP 116/67; PULSE 79; RESP 19; TEMP 97.5
[2023-11-27 20:00] VITALS: BP 139/72; PULSE 83; RESP 19; TEMP 97.5
[2023-11-28] VITALS: BP 121/69; PULSE 84; RESP 20; TEMP 97.8
[2023-11-28 04:00] VITALS: BP 123/64; PULSE 86; RESP 19; TEMP 97.3
[2023-11-28 08:00] VITALS: BP 118/47; PULSE 90; RESP 20; TEMP 98.5
[2023-11-28 08:16] VITALS: BP 123/64; PULSE 86; TEMP 98; O2SAT 99
== END 2023-11-28 10:27 | disposition hospice, home (50) | DRG 720 ==
LOC: ER 13:09 → 5EST 17:35 → EDBEDREQSVC 17:37 → EDBEDREQTM 17:37 → EDBEDREQ 17:37 → 7EST 11-20 12:30 → 6WST 11-23 13:02
PROVIDERS: ADMIT Internal Medicine; ATTEND Internal Medicine
PROC: 30233N1 Transfusion of Nonautologous Red Blood Cells into Peripheral Vein, Percutaneous Approach (ICD-10-PCS; principal; 2023-11-16)
PROC: 0Q9 Lower Bones, Drainage (ICD-10-PCS; 2023-11-16)
DX: A41.9 Sepsis, unspecified organism (principal); E43 Unspecified severe protein-calorie malnutrition; K68.12 Psoas muscle abscess; D68.59 Other primary thrombophilia; I82.432 Acute embolism and thrombosis of left popliteal vein; C25.9 Malignant neoplasm of pancreas, unspecified; E87.1 Hypo-osmolality and hyponatremia; C18.9 Malignant neoplasm of colon, unspecified; I48.92 Unspecified atrial flutter; I11.0 Hypertensive heart disease with heart failure; I50.9 Heart failure, unspecified; D64.9 Anemia, unspecified; E78.5 Hyperlipidemia, unspecified; J44.9 Chronic obstructive pulmonary disease, unspecified; Z68.1 Body mass index [BMI] 19.9 or less, adult; N28.1 Cyst of kidney, acquired; J98.4 Other disorders of lung; I48.91 Unspecified atrial fibrillation; E16.2 Hypoglycemia, unspecified; Z99.81 Dependence on supplemental oxygen; Z90.49 Acquired absence of other specified parts of digestive tract; Z87.11 Personal history of peptic ulcer disease; Z86.718 Personal history of other venous thrombosis and embolism; Z85.07 Personal history of malignant neoplasm of pancreas; Z85.038 Personal history of other malignant neoplasm of large intestine; Z79.899 Other long term (current) drug therapy; Z51.5 Encounter for palliative care; K92.1 Melena; R65.20 Severe sepsis without septic shock
CPT/HCPCS: 10030; 36415; 71045; 71250; 74176; 78580; 80048; 80053; 80061; 80202; 82270; 82550; 82728; 82962; 83540; 83550; 83605; 83735; 83880; 84100; 84145; 84439; 84443; 84484; 85014; 85018; 85025; 85027; 85044; 85379; 86850; 86900; 86920; 87077; 87186; 93005; 93970; 99291; C1729; C1760; C1769; C1893; C9113; J1650; J1885; J1940; J2185; J2270; J2405; J2543; J3370; J3475; J3480; J3490; J7030; J7040; J7042; J7120; P9016